=== PATIENT | female | born 1990 | race Caucasian/White ===

== ENCOUNTER 2019-06-03 13:14 | Outpatient (CLI) | payer OTHER ==
[2019-06-03 13:56] VITALS: BP 132/83; PULSE 100; RESP 20; TEMP 97.4
[2019-06-03] MEDS ORDERED: ONDANSETRON 4 MG/2 ML VIAL IVP STA (14:02)
[2019-06-03] MEDS ORDERED: LACTATED RINGERS 1,000 ML IV SCH (14:15)
--- NOTE | 2019-06-08 15:13 | P.MSEPDOC ---
Presenting Problems - Arrival Data Date of Arrival on Unit: 06/03/19 Time of Arrival on Unit: 13:14 Mode of Transport: Ambulatory - Complaint OB-Reason for Admission/Chief Complaint: Acute Nausea/Vomiting, Headache Medical History - Information : 3 Para: 2 Term: 2 : 0 Abortions: Spontaneous or Elective: 0 Number of Living Children: 2 - Gestational Age Gestational Age by RIGOBERTO (wks/days): 36 Weeks and 5 Days - History Comment: none Review of Systems - Review of Systems Constitutional: No problems Breast: No problems ENT: No problems Cardiovascular: No problems Respiratory: No problems Gastrointestinal: No problems Genitourinary: No problems Musculoskeletal: No problems Neurological: No problems Skin: No problems Vital Signs - Temperature Temperature: 97.4 F Temperature Source: Temporal Artery Scan - Pulse Right Supine Brachial Pulse Rate: 100 Pulse Assessment Method: Auscultation - Respirations Respiratory Rate: 20 Oxygen Delivery Method: Room Air O2 Sat by Pulse Oximetry: 99 - Blood Pressure Right Arm Supine Blood Pressure: 132/83 Blood Pressure Mean: 99 Blood Pressure Source: Automatic Cuff Medical Screen Scoring (Pre) - Uterine Contractions Frequency: > 5 minutes apart = 1 - Assessment - Baby A Baseline FHR: 125 Heart Rate - NICHD Category: Category I (Normal) = 0 NST: Reactive - Total Score - Baby A Total Score - Baby A: 1 - Total Score - Baby B Total Score - Baby B: 1 - Total Score - Baby C Total Score - Baby C: 1 - Level of Risk - Baby A Level of Risk - Baby A: Low (0-5) - Level of Risk - Baby B Level of Risk - Baby B: Low (0-5) - Level of Risk - Baby C Level of Risk - Baby C: Low (0-5) Physician Notification (Pre) - Physician Notified Physician Notified Date: 06/03/19 Physician Notified Time: 13:50 Physician/Practitioner Notifed:: Dr Hollis Spoke With: Dr Hollis New Order Received: Yes - Notification Comment Comment: Start IV of LR and given dose of zofran, perform vag exam and call back after IV infused Disposition - Disposition OB Disposition: Discharge to home Transferred to:: Home Discharge Date: 06/03/19 Discharge Time: 15:40 I agree with the RN Medical Screening Exam: Yes Risk & Benefit of care provided described in d/c instruction: Yes Diagnosis: VOMITING OF , UNSPECIFIED
== END 2019-06-03 15:40 | disposition home or self-care (01) ==
LOC: FBPOP 13:14
PROVIDERS: ATTEND Obstetrics & Gynecology Obstetrics
DX: O21.9 Vomiting of pregnancy, unspecified (principal); Z3A.36 36 weeks gestation of pregnancy
CPT/HCPCS: 59025; 99214; 96361; 96374; J2405

== ENCOUNTER 2019-06-06 10:47 | Outpatient (CLI) | payer OTHER, BC ==
[2019-06-06 11:23] VITALS: BP 139/87; PULSE 122; RESP 16; TEMP 98.6
[2019-06-06 11:44] LABS: Amorphous Sediment,Urine Rare /hpf; Appearance,Urine Cloudy (Clear); Bilirubin,Urine Negative (Negative); Blood,Urine Negative (Negative); Color,Urine Yellow; Glucose,Urine (UA) Negative (Negative); Ketones,Urine Negative (Negative); Leukocyte Esterase,Urine Large (Negative); Mucus,Urine Rare /hpf; Nitrite,Urine Negative (Negative); Protein,Urine Trace (Negative); RBC,Urine 2 /hpf (0-5); Specific Gravity,Urine 1.015 (1.001-1.035); Squamous Epithelial Cell,Urine 6 /hpf (0-4); Urobilinogen,Urine <2.0 mg/dL (<2.0); WBC,Urine 20 /hpf (0-5)
--- NOTE | 2019-06-08 15:15 | P.MSEPDOC ---
Presenting Problems - Arrival Data Date of Arrival on Unit: 06/06/19 Time of Arrival on Unit: 10:47 Mode of Transport: Ambulatory - Complaint OB-Reason for Admission/Chief Complaint: PIH Comment: pt states elevated pressures at home Medical History - Information : 3 Para: 2 Term: 2 : 0 Abortions: Spontaneous or Elective: 0 Number of Living Children: 2 - Gestational Age Gestational Age by RIGOBERTO (wks/days): 37 Weeks and 1 Days Review of Systems - Review of Systems Constitutional: No problems Breast: No problems ENT: No problems Cardiovascular: No problems Respiratory: No problems Gastrointestinal: No problems Genitourinary: No problems Musculoskeletal: No problems Neurological: No problems Skin: No problems Vital Signs - Temperature Temperature: 98.6 F Temperature Source: Oral - Pulse Right Brachial Pulse Rate: 122 Pulse Assessment Method: Automatic Cuff - Respirations Respiratory Rate: 16 Oxygen Delivery Method: Room Air O2 Sat by Pulse Oximetry: 96 - Blood Pressure Right Arm Blood Pressure: 139/87 Blood Pressure Mean: 104 Blood Pressure Source: Automatic Cuff Medical Screen Scoring (Pre) - Cervical Exam Dilation: 1-3 cm = 1 Membranes: Intact - Uterine Contractions Frequency: N/A Duration: N/A Intensity: N/A - Maternal Vital Signs Maternal Temperature: N/A Maternal Blood Pressure: N/A Signs of Preeclampsia: Headache = 1 Maternal Respirations: N/A - Maternal Trauma Maternal Trauma: N/A - Assessment - Baby A Baseline FHR: 135 Heart Rate - NICHD Category: Category I (Normal) = 0 NST: Reactive Position: N/A Station: N/A - Total Score - Baby A Total Score - Baby A: 2 - Total Score - Baby B Total Score - Baby B: 2 - Total Score - Baby C Total Score - Baby C: 2 - Level of Risk - Baby A Level of Risk - Baby A: Low (0-5) - Level of Risk - Baby B Level of Risk - Baby B: Low (0-5) - Level of Risk - Baby C Level of Risk - Baby C: Low (0-5) Physician Notification (Post) - Physician Notified Physician Notified Date: 06/06/19 Physician Notified Time: 12:12 Physician/Practitioner Notified:: Bunny Spoke With: Bunny New Order Received: No - Notification Comment Comment: pt may go home on modifed bedrest, return if symptoms get worse and keep next scheduled appointment next Sunday. Disposition - Disposition Discharge Date: 06/06/19 Discharge Time: 12:20 I agree with the RN Medical Screening Exam: Yes Risk & Benefit of care provided described in d/c instruction: Yes Diagnosis: OTHER SPECIFIED COMPLICATIONS OF LABOR AND DELIVERY
== END 2019-06-06 12:20 | disposition home or self-care (01) ==
LOC: FBPOP 10:47
PROVIDERS: ATTEND Obstetrics & Gynecology Obstetrics
DX: O75.89 Other specified complications of labor and delivery (principal); Z3A.37 37 weeks gestation of pregnancy
CPT/HCPCS: 59025; 81001; 82570; 84156; 99215

== ENCOUNTER 2019-06-19 06:00 | Inpatient (IN) | payer BC, OTHER ==
[2019-06-19] MEDS ORDERED: CARBOPROST TROMETHAMINE 250 MCG/ML 1 ML AMP IM PRN (06:31)
[2019-06-19] MEDS ORDERED: LIDOCAINE 0.5% (PF) 5 MG/ML (50 ML SDV) SQ PRN (06:31)
[2019-06-19] MEDS ORDERED: TERBUTALINE 1 MG/ML VIAL SQ PRN (06:31)
[2019-06-19] MEDS ORDERED: METHYLERGONOVINE 0.2 MG/ML 1 ML AMP IM PRN (06:31)
[2019-06-19] MEDS ORDERED: OXYTOCIN 10 UNIT/ML 1 ML VIAL IM PRN (06:31)
[2019-06-19] MEDS ORDERED: LACTATED RINGERS 1,000 ML IV SCH (06:45)
[2019-06-19] MEDS ORDERED: OXYTOCIN 30 UNITS/500 ML NS 30 UNIT in SALINE 1 500ML.BAG IV SCH (06:45)
[2019-06-19 07:30] LABS: Appearance,Urine Clear (Clear); Bacteria,Urine Rare /hpf; Bilirubin,Urine Negative (Negative); Blood,Urine Negative (Negative); Color,Urine Yellow; Glucose,Urine (UA) Negative (Negative); Ketones,Urine Negative (Negative); Leukocyte Esterase,Urine Large (Negative); Mucus,Urine Occasional /hpf; Nitrite,Urine Negative (Negative); Protein,Urine Trace (Negative); RBC,Urine 1 /hpf (0-5); Specific Gravity,Urine 1.019 (1.001-1.035); Squamous Epithelial Cell,Urine 4 /hpf (0-4); Urobilinogen,Urine <2.0 mg/dL (<2.0); WBC,Urine 11 /hpf (0-5)
[2019-06-19 07:35] VITALS: BMI 54.6
[2019-06-19 07:35] LABS: Anisocytosis Slight; Basophils % (A) 0 %; Eosinophils % (A) 0 %; HCT 31.2 % (34.0-46.0); HGB 9.9 gm/dL (11.4-16.0); Hypochromasia Moderate; Lymphocytes # (A) 1.5 k/uL (1.0-4.8); Lymphocytes % (A) 13 %; MCH 24.3 pg (25.0-35.0); MCHC 31.7 g/dL (31.0-37.0); MCV 76.7 fL (80.0-100.0); Mean Platelet Volume 6.8; Microcytosis Slight; Monocytes # (A) 0.6 k/uL (0-1.0); Monocytes % (A) 6 %; Neutrophils # (A) 8.8 k/uL (1.3-7.7); Neutrophils % (A) 79 %; Platelet Count 329 k/uL (150-450); Poikilocytosis Slight; RBC 4.07 m/uL (3.80-5.40); WBC 11.2 k/uL (3.8-10.6)
[2019-06-19 07:59] LABS: ALT 18 U/L (9-52); AST 19 U/L (14-36); African American GFR (CKD) >90 (>60 ml/min/1.73 sqM); Blood Urea Nitrogen 11 mg/dL (7-17); Non-African American GFR(CKD) >90 (>60 ml/min/1.73 sqM); Uric Acid 7.6 mg/dL (3.7-7.4)
[2019-06-19 08:14] LABS: LDH 386 U/L (313-618)
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
[2019-06-19] MEDS ORDERED: fentaNYL (PF) 50 MCG/ML 5 ML AMP ONE (09:07)
[2019-06-19] MEDS ORDERED: SODIUM CHLORIDE 0.9% 100 ML BAG ONE (09:07)
[2019-06-19] MEDS ORDERED: ROPIVACAINE 5MG/ML 20ML VIAL ONE (09:07)
[2019-06-19] MEDS ORDERED: LANOLIN CREAM 5 GM TUBE TOPICAL PRN (12:41)
[2019-06-19] MEDS ORDERED: ZOLPIDEM 5 MG TAB PO PRN (12:41)
[2019-06-19] MEDS ORDERED: diphenhydrAMINE 50 MG/ML 1 ML VIAL IVP PRN ×2 (12:41)
[2019-06-19] MEDS ORDERED: BENZOCAINE/MENTHOL SPRAY 1 GM/SPRAY AEROSOL TOPICAL PRN (12:41)
[2019-06-19] MEDS ORDERED: HYDROCORTISONE 2.5% RECTAL CREAM 30 GM TUBE RECTAL PRN (12:41)
[2019-06-19] MEDS ORDERED: WITCH HAZEL 1 EACH MED..PAD TOPICAL PRN (12:41)
[2019-06-19] MEDS ORDERED: diphenhydrAMINE 25 MG CAP PO PRN (12:41)
[2019-06-19] MEDS ORDERED: SIMETHICONE 80 MG CHEWABLE PO PRN (12:41)
[2019-06-19] MEDS ORDERED: HYDROcodone/APAP 5-325MG 1 EACH TAB PO PRN (12:41)
[2019-06-19] MEDS ORDERED: diphenhydrAMINE 50 MG CAP PO PRN (12:41)
--- NOTE | 2019-06-19 12:44 | P.PROBDLV ---
Vaginal Delivery Note - . Vaginal Delivery Note: This is a 29-year-old 3 para 2001 at 39-0/7 weeks that presented to labor and delivery for induction of labor. Patient had being followed for gestational hypertension. Patient was admitted blood pressures were noted to be elevated 160s over 90s preeclampsia labs were done and negative. Patient was started on Pitocin for induction of labor per hospital protocol. Patient progressed through labor when regular contractions were noted amniotomy was performed and clear fluid was obtained. Patient was noted be 4 cm at the time of amniotomy and was requesting epidural placement. Epidural was placed without difficulty by the anesthesia department. Patient progressed to complete began pushing and had a normal spontaneous vaginal delivery of a viable female infant in an occiput anterior presentation. Weight of 7 lbs. 5 oz. at 1231, Apgars of 9 and 9 at one and 5 minutes respectively. After a two-minute delayed the umbilical cord was then doubly clamped and cut and the was handed off to mom. The placenta was then delivered spontaneously intact with a three-vessel cord being noted. On inspection the patient's vaginal vault no lacerations were noted. The uterus was noted a firm and below the umbilicus. Estimated blood loss 200 mL Patient and infant tolerated delivery well and are resting comfortably.
[2019-06-19] MEDS ORDERED: OXYTOCIN 20 UNITS/1000 ML NS 1,000 ML IV SCH (12:45)
[2019-06-19] MEDS: IBUPROFEN 600 MG TAB PO PRN (18:38)
[2019-06-19] MEDS: SENNOSIDES-DOCUSATE SODIUM 1 EACH TAB PO SCH (20:19)
[2019-06-19] MEDS: ACETAMINOPHEN TAB 325 MG TAB PO PRN (20:20)
[2019-06-19] MEDS ORDERED: NIFEdipine XL 30 MG TAB.ER.24 PO STA (21:56)
[2019-06-20] MEDS: IBUPROFEN 600 MG TAB PO PRN ×2 (00:25→08:55)
[2019-06-20] MEDS: ACETAMINOPHEN TAB 325 MG TAB PO PRN (04:04)
[2019-06-20 07:10] LABS: Anisocytosis Slight; Basophils # (A) 0.1 k/uL (0-0.2); Basophils % (A) 1 %; Eosinophils # (A) 0.1 k/uL (0-0.7); Eosinophils % (A) 1 %; HCT 28.5 % (34.0-46.0); HGB 8.9 gm/dL (11.4-16.0); Hypochromasia Marked; Lymphocytes # (A) 2.7 k/uL (1.0-4.8); Lymphocytes % (A) 19 %; MCHC 31.1 g/dL (31.0-37.0); Mean Platelet Volume 6.6; Microcytosis Slight; Monocytes # (A) 0.5 k/uL (0-1.0); Monocytes % (A) 4 %; Neutrophils # (A) 10.6 k/uL (1.3-7.7); Neutrophils % (A) 75 %; Platelet Count 333 k/uL (150-450); Poikilocytosis Slight; WBC 14.2 k/uL (3.8-10.6)
--- NOTE | 2019-06-20 08:43 | P.DS ---
Providers Date of admission: 06/19/19 06:00 Expected date of discharge: 06/20/19 Attending physician: Meena Hollis Primary care physician: Stated None - Discharge Diagnosis(es) (1) Obesity Current Visit: No Status: Acute (2) induced hypertension Current Visit: No Status: Acute (3) Term Current Visit: No Status: Acute (4) Normal spontaneous vaginal delivery Current Visit: No Status: Acute Hospital Course: this is a 29 that presented to labor and delivery for induction of labor. Patient was being followed for gestional HTN. she was admitted and pitocin augmentation of labor was begun per protocol. amniotomy was preformed and clear fluid was obtained. she became uncomfortable and requested epidural placement by anesthesia. she progressed to complete began pushing and had a normal spontaneous vaginal delivery of a viable female infant at 1231, weight 7- 5. no vaginal or perineal lacerations were noted. Patients course has been uneventful and is doing well on this day 1. she is breast and bottlefeeding, she is tolerating a regular diet. she states lochia is minimal. she denies pain. she does wish d/c home at 24 hours. Patient Condition at Discharge: Good Plan - Discharge Summary New Discharge Prescriptions: No Action Pedi Multivit No.25/Folic Acid [Flintstones Multivit Chew Tab] 1 tab PO ONCE Discharge Medication List Pedi Multivit No.25/Folic Acid [Flintstones Multivit Chew Tab] 1 tab PO ONCE 09/24/17 [History] Follow up Appointment(s)/Referral(s): Meena Hollis DO [Doctor of Osteopathic Medicine] - 1 Week Patient Instructions/Handouts: Vaginal Delivery (DC), Vaginal Delivery (GEN) Discharge Disposition: HOME SELF-CARE
[2019-06-20] MEDS: SENNOSIDES-DOCUSATE SODIUM 1 EACH TAB PO SCH (08:55)
[2019-06-20 10:26] VITALS: BP 141/86; PULSE 98; RESP 16; TEMP 97.3
== END 2019-06-20 15:50 | disposition home or self-care (01) | DRG 807 ==
LOC: 4FBP 06:00
PROVIDERS: ADMIT Obstetrics & Gynecology Obstetrics; ATTEND Obstetrics & Gynecology Obstetrics
PROC: 00HU33Z Insertion of Infusion Device into Spinal Canal, Percutaneous Approach (ICD-10-PCS; principal; 2019-06-19)
PROC: 10907ZC Drainage of Amniotic Fluid, Therapeutic from Products of Conception, Via Natural or Artificial Opening (ICD-10-PCS; principal; 2019-06-19)
PROC: 10E0XZZ Delivery of Products of Conception, External Approach (ICD-10-PCS; principal; 2019-06-19)
PROC: 3E033VJ Introduction of Other Hormone into Peripheral Vein, Percutaneous Approach (ICD-10-PCS; principal; 2019-06-19)
PROC: 3E0R3NZ Introduction of Analgesics, Hypnotics, Sedatives into Spinal Canal, Percutaneous Approach (ICD-10-PCS; principal; 2019-06-19)
DX: O13.4 Gestational [pregnancy-induced] hypertension without significant proteinuria, complicating childbirth (principal); Z37.0 Single live birth; Z3A.39 39 weeks gestation of pregnancy; Z82.49 Family history of ischemic heart disease and other diseases of the circulatory system; Z83.3 Family history of diabetes mellitus; Z91.040 Latex allergy status; Z88.8 Allergy status to other drugs, medicaments and biological substances; Z91.018 Allergy to other foods
CPT/HCPCS: 81001; 82565; 82570; 83615; 84156; 84450; 84460; 84520; 84550; 85025; 86850; 86900; 86901

== ENCOUNTER → 2019-10-22 | Outpatient (CLI) | payer BC | END | disposition home or self-care (01) | LOC: LABWHC1 16:48 | PROVIDERS: ATTEND Obstetrics & Gynecology Obstetrics | DX: O20.0 Threatened abortion (principal); Z3A.00 Weeks of gestation of pregnancy not specified | CPT/HCPCS: 36415; 84702 ==

== ENCOUNTER → 2019-10-24 | Outpatient (CLI) | payer BC | END | disposition home or self-care (01) | LOC: LABWHC1 16:47 | PROVIDERS: ATTEND Obstetrics & Gynecology Obstetrics | DX: O20.0 Threatened abortion (principal) | CPT/HCPCS: 36415; 84702 ==

== ENCOUNTER 2020-09-23 06:00 | Inpatient (IN) | payer BC, OTHER ==
[2020-09-23] MEDS ORDERED: LIDOCAINE 0.5% (PF) 5 MG/ML (50 ML SDV) SQ PRN (06:21)
[2020-09-23] MEDS ORDERED: TERBUTALINE 1 MG/ML VIAL SQ PRN (06:21)
[2020-09-23] MEDS ORDERED: CARBOPROST TROMETHAMINE 250 MCG/ML 1 ML AMP IM PRN (06:21)
[2020-09-23] MEDS ORDERED: METHYLERGONOVINE 0.2 MG/ML 1 ML AMP IM PRN (06:21)
[2020-09-23] MEDS ORDERED: OXYTOCIN 10 UNIT/ML 1 ML VIAL IM PRN (06:21)
[2020-09-23] MEDS: LACTATED RINGERS 1,000 ML IV SCH ×2 (06:26→20:46)
[2020-09-23] MEDS ORDERED: OXYTOCIN 30 UNITS/500 ML NS 30 UNIT in SALINE 1 500ML.BAG IV SCH (06:30)
[2020-09-23 06:40] LABS: Anisocytosis Slight; Basophils # (A) 0.1 k/uL (0-0.2); Basophils % (A) 1 %; Eosinophils # (A) 0.1 k/uL (0-0.7); Eosinophils % (A) 1 %; HCT 31.2 % (34.0-46.0); HGB 9.4 gm/dL (11.4-16.0); Hypochromasia Marked; Lymphocytes # (A) 1.7 k/uL (1.0-4.8); Lymphocytes % (A) 13 %; MCH 22.3 pg (25.0-35.0); MCHC 30.1 g/dL (31.0-37.0); MCV 74.1 fL (80.0-100.0); Mean Platelet Volume 6.9; Microcytosis Moderate; Monocytes # (A) 0.6 k/uL (0-1.0); Monocytes % (A) 5 %; Neutrophils # (A) 10.1 k/uL (1.3-7.7); Neutrophils % (A) 79 %; Platelet Count 348 k/uL (150-450); Poikilocytosis Moderate; RBC 4.22 m/uL (3.80-5.40); RDW 17.9 % (11.5-15.5); WBC 12.8 k/uL (3.8-10.6)
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
[2020-09-23] MEDS ORDERED: ROPIVACAINE 5MG/ML 20ML VIAL ONE (08:44)
[2020-09-23] MEDS ORDERED: SODIUM CHLORIDE 0.9% 100 ML BAG ONE (08:44)
[2020-09-23] MEDS ORDERED: fentaNYL (PF) 50 MCG/ML 5 ML AMP ONE (08:44)
[2020-09-23] MEDS ORDERED: HYDROCORTISONE 2.5% RECTAL CREAM 30 GM TUBE RECTAL PRN (12:56)
[2020-09-23] MEDS ORDERED: BENZOCAINE/MENTHOL SPRAY 1 GM/SPRAY AEROSOL TOPICAL PRN (12:56)
[2020-09-23] MEDS ORDERED: diphenhydrAMINE 50 MG/ML 1 ML VIAL IVP PRN ×2 (12:56)
[2020-09-23] MEDS ORDERED: ZOLPIDEM 5 MG TAB PO PRN (12:56)
[2020-09-23] MEDS ORDERED: LANOLIN CREAM 5 GM TUBE TOPICAL PRN (12:56)
[2020-09-23] MEDS ORDERED: diphenhydrAMINE 25 MG CAP PO PRN (12:56)
[2020-09-23] MEDS ORDERED: diphenhydrAMINE 50 MG CAP PO PRN (12:56)
[2020-09-23] MEDS ORDERED: SIMETHICONE 80 MG CHEWABLE PO PRN (12:56)
[2020-09-23] MEDS ORDERED: OXYTOCIN 20 UNITS/1000 ML NS 1,000 ML IV SCH (13:00)
--- NOTE | 2020-09-23 13:00 | P.PROBDLV ---
Vaginal Delivery Note - . Vaginal Delivery Note: This is a 30-year-old 5 para 3013 that presents to labor and delivery at 37-0/7 weeks for induction of labor secondary to gestational hypertension and history of . Patient had been receiving routine care which has been uncomplicated with the exception of elevated blood pressures 140s over 90s that began 2 weeks ago. Patient was admitted to labor and delivery Pitocin induction of labor was begun per hospital protocol. Patient soon became uncomfortable and epidural was placed by the anesthesia department. Amniotomy was performed and clear fluid was obtained. Patient progressed to complete began pushing and had a normal spontaneous vaginal delivery of a viable male at 1241, weight of 7 lbs. 7 oz. and Apgars of 99 at one and 5 minutes respectively. A short umbilical cord was noted in the umbilical cord was doubly clamped and cut at the perineum. The placenta was then delivered spontaneously intact with a three-vessel cord being noted. On inspection the patient's vaginal vault a small superficial laceration was noted it was not bleeding and felt another nicely. Given patient's significant discomfort, and superficial nature of the laceration this was not repaired. The patient's uterus is noted to be slightly above the umbilicus with a moderate amount of vaginal delivery noted, the bladder was drained for partially 200 mL of yellow urine. Uterus was noted to be firm and below the umbilicus after the bladder was drained. All counts were noted to be correct 2 then the procedure. Patient and infant tolerated delivery well and are resting comfortably.
[2020-09-23] MEDS: IBUPROFEN 600 MG TAB PO PRN ×2 (15:17→22:11)
[2020-09-23] MEDS: ACETAMINOPHEN TAB 325 MG TAB PO PRN (17:59)
[2020-09-23] MEDS: SENNOSIDES-DOCUSATE SODIUM 1 EACH TAB PO SCH (20:57)
[2020-09-24] MEDS: ACETAMINOPHEN TAB 325 MG TAB PO PRN ×2 (04:01→11:41)
[2020-09-24 07:21] LABS: Anisocytosis Slight; Basophils % (A) 0 %; Eosinophils # (A) 0.1 k/uL (0-0.7); Eosinophils % (A) 1 %; HCT 28.3 % (34.0-46.0); HGB 8.6 gm/dL (11.4-16.0); Hypochromasia Marked; Lymphocytes % (A) 17 %; MCH 22.3 pg (25.0-35.0); MCHC 30.3 g/dL (31.0-37.0); MCV 73.7 fL (80.0-100.0); Mean Platelet Volume 6.8; Microcytosis Moderate; Monocytes # (A) 0.5 k/uL (0-1.0); Monocytes % (A) 5 %; Neutrophils # (A) 8.7 k/uL (1.3-7.7); Neutrophils % (A) 75 %; Platelet Count 293 k/uL (150-450); Poikilocytosis Slight; RBC 3.84 m/uL (3.80-5.40); RDW 17.8 % (11.5-15.5); WBC 11.5 k/uL (3.8-10.6)
[2020-09-24] MEDS: IBUPROFEN 600 MG TAB PO PRN ×3 (07:43→23:52)
[2020-09-24] MEDS: SENNOSIDES-DOCUSATE SODIUM 1 EACH TAB PO SCH ×2 (07:43→22:02)
--- NOTE | 2020-09-24 09:05 | P.PNOBGVD ---
Subjective - Subjective Principal diagnosis: PPD 1 Interval history: this is a 30-year-old s/p , patient did well overnight. She is ambulating and voiding without difficulty. She is tolerating a regular diet without nausea or vomiting. She states her pain is well-controlled. blood pressures 130s to 140s over 90s. She denies any headache or abdominal pain not associated with being . Lochia is moderate. Patient reports: Reports appetite normal, Reports voiding normally, Reports pain well controlled, Reports ambulating normally Barnes: doing well (in the nursery on oxygen treatment.) Objective - Latest Vital Signs Latest vital signs: Vital Signs Temp Pulse Resp BP Pulse Ox 09/24/20 08:00 97.8 F 87 16 133/89 09/24/20 04:00 97.9 F 88 17 136/90 96 09/24/20 00:00 97.8 F 86 17 136/99 96 09/23/20 20:00 98.2 F 104 H 17 140/87 98 09/23/20 15:39 102 H 20 09/23/20 15:38 98.1 F 102 H 20 134/68 09/23/20 15:09 98.2 F 108 H 16 133/63 99 09/23/20 14:39 98.9 F 100 16 135/62 09/23/20 14:09 108 H 16 133/63 09/23/20 13:54 99.2 F 111 H 16 138/72 09/23/20 13:39 98.5 F 114 H 16 167/80 09/23/20 13:24 98.5 F 106 H 16 139/68 09/23/20 13:09 99.7 F H 113 H 16 113/68 Intake and Output 09/23/20 09/24/20 09/24/20 22:59 06:59 14:59 Other: Voiding Method Toilet # Voids 1 1 - Exam Extremities: Present: normal, edema Abdomen: Present: normal appearance Uterus: Present: normal - Labs Labs: Abnormal Lab Results - Last 24 Hours (Table) 09/24/20 Range/Units 06:58 WBC 11.5 H (3.8-10.6) k/uL Hgb 8.6 L (11.4-16.0) gm/dL Hct 28.3 L (34.0-46.0) % MCV 73.7 L (80.0-100.0) fL MCH 22.3 L (25.0-35.0) pg MCHC 30.3 L (31.0-37.0) g/dL RDW 17.8 H (11.5-15.5) % Neutrophils # 8.7 H (1.3-7.7) k/uL Assessment and Plan (1) 37 weeks gestation of Current Visit: Yes Status: Acute Code(s): Z3A.37 - 37 WEEKS GESTATION OF SNOMED Code(s): 78670783 (2) Gestational HTN Current Visit: Yes Status: Acute Code(s): O13.9 - GESTATIONAL HTN W/O SIGNIFICANT PROTEINURIA, UNSP TRIMESTER SNOMED Code(s): 735859844 (3) Obesity Current Visit: No Status: Acute Code(s): E66.9 - OBESITY, UNSPECIFIED SNOMED Code(s): 856046689 (4) Status post vaginal delivery Current Visit: Yes Status: Acute Code(s): MAA6544 - SNOMED Code(s): 213990491 Plan: patient is doing well . We will continue to watch blood pressures closely. At this time blood pressures are 130s to 140s over 90s. is in the nursery on oxygen therapy, she wishes to stay until tomorrow. We'll anticipate discharge home tomorrow.
[2020-09-25 09:43] VITALS: BP 112/80; PULSE 80; RESP 16; TEMP 97.9
[2020-09-25] MEDS: SENNOSIDES-DOCUSATE SODIUM 1 EACH TAB PO SCH (09:45)
--- NOTE | 2020-09-25 11:03 | P.DS ---
Providers Date of admission: 09/23/20 06:04 Expected date of discharge: 09/25/20 Attending physician: Meena Hollis Primary care physician: Stated None - Discharge Diagnosis(es) (1) Normal spontaneous vaginal delivery Current Visit: No Status: Acute Hospital Course: The patient is a 30-year-old 5 para 3013 admitted at 37-0/7 weeks who was admitted to labor and delivery for induction of labor secondary to gestational hypertension. Her was essentially uncomplicated until late third trimester at which time she began to have elevated blood pressures with no other signs of preeclampsia. On labor and delivery, she had Pitocin started followed by artificial rupture of membranes. She also had made progress to complete and then pushed to a normal spontaneous vaginal delivery of a viable 7 lbs. 7 oz. baby girl with Apgars of 9 at 1 minute and 9 at 5 minutes. Her course was unremarkable with the vital signs or any stable and her temperature was afebrile throughout. She was deemed stable for discharge on day #2 as the remains in the special care nursery for oxygen supplementation. She was discharged home to follow-up in the office in 6 weeks' time routinely. Instructions included calling for any significantly increased bleeding or foul-smelling lochia, significantly increased fever abdominal pain, perineal complaints, breast complaints, or anything else that concerned her. She is additionally instructed to have nothing in the vagina for at least 6 weeks time to include intercourse. She understood all of her instructions and agrees follow up as noted above. Discharge medications included continued vitamins as she has opted to breast-feed. She was otherwise to use [id number] analgesic pain medications. She was also instructed to continue with iron sulfate 325 mg 1-2 times daily for a month to reveal her hemoglobin as her discharge hemoglobin and hematocrit were 8.6 and 28.3 respectively. Maternal blood type is A+ and rubella status is nonimmune. She therefore was to receive the MMR vaccination prior to discharge. Procedures: #1. Pitocin induction #2. Epidural analgesia 3. Artificial rupture of membranes #4. Normal spontaneous vaginal delivery Patient Condition at Discharge: Stable Plan - Discharge Summary New Discharge Prescriptions: No Action Pedi Multivit No.25/Folic Acid [Flintstones Multivit Chew Tab] 1 tab PO ONCE Discharge Medication List Pedi Multivit No.25/Folic Acid [Flintstones Multivit Chew Tab] 1 tab PO ONCE 09/24/17 [History] Follow up Appointment(s)/Referral(s): Meena Hollis DO [Doctor of Osteopathic Medicine] - 6 Weeks Discharge Disposition: HOME SELF-CARE
== END 2020-09-25 12:15 | disposition home or self-care (01) | DRG 807 ==
LOC: 4FBP 06:04
PROVIDERS: ADMIT Obstetrics & Gynecology Obstetrics; ATTEND Obstetrics & Gynecology Obstetrics
PROC: 3E0R3BZ Introduction of Anesthetic Agent into Spinal Canal, Percutaneous Approach (ICD-10-PCS; principal; 2020-09-23)
PROC: 00HU33Z Insertion of Infusion Device into Spinal Canal, Percutaneous Approach (ICD-10-PCS; principal; 2020-09-23)
PROC: 10907ZC Drainage of Amniotic Fluid, Therapeutic from Products of Conception, Via Natural or Artificial Opening (ICD-10-PCS; principal; 2020-09-23)
PROC: 3E033VJ Introduction of Other Hormone into Peripheral Vein, Percutaneous Approach (ICD-10-PCS; principal; 2020-09-23)
PROC: 10E0XZZ Delivery of Products of Conception, External Approach (ICD-10-PCS; principal; 2020-09-23)
DX: O13.4 Gestational [pregnancy-induced] hypertension without significant proteinuria, complicating childbirth (principal); Z37.0 Single live birth; O69.3XX0 Labor and delivery complicated by short cord, not applicable or unspecified; O99.214 Obesity complicating childbirth; E66.9 Obesity, unspecified; O71.4 Obstetric high vaginal laceration alone; Z3A.37 37 weeks gestation of pregnancy; Z91.040 Latex allergy status; Z91.018 Allergy to other foods; Z82.49 Family history of ischemic heart disease and other diseases of the circulatory system; Z83.3 Family history of diabetes mellitus
CPT/HCPCS: 85025; 86850; 86900; 86901; 88307